=== PATIENT | female | born 1960 | race Native Hawaiian/Other Pacific Islander ===

== ENCOUNTER 2020-02-14 16:39 | Outpatient (CLI) | payer OTHER ==
[2020-02-14 17:08] LABS: PLATELET COUNT 350 K/uL (152-353)
[2020-02-14 17:23] LABS: POTASSIUM 4.1 mmol/L (3.6-5.2)
== END 2020-02-14 20:04 | disposition home or self-care (01) ==
LOC: LABW 16:39
PROVIDERS: ATTEND Internal Medicine Cardiovascular Disease
DX: Z01.812 Encounter for preprocedural laboratory examination (principal); Z11.59 Encounter for screening for other viral diseases; I10 Essential (primary) hypertension
CPT/HCPCS: 36415; 80053; 85027; 87635; U0003

== ENCOUNTER 2020-08-28 08:08 | Outpatient (CLI) | payer OTHER | END 2020-08-28 22:17 | disposition home or self-care (01) | LOC: US 08:08 | PROVIDERS: ATTEND Nurse Practitioner Family | DX: L04.0 Acute lymphadenitis of face, head and neck (principal) ==

== ENCOUNTER 2021-05-27 08:58 | Outpatient (CLI) | payer OTHER | END 2021-05-27 19:00 | disposition home or self-care (01) | LOC: RAD 08:58 | PROVIDERS: ATTEND Internal Medicine Rheumatology | DX: M06.09 Rheumatoid arthritis without rheumatoid factor, multiple sites (principal); Z79.899 Other long term (current) drug therapy ==

== ENCOUNTER 2022-03-26 11:10 | Outpatient (CLI) | payer OTHER | END 2022-03-26 19:00 | disposition home or self-care (01) | LOC: RAD 11:10 | PROVIDERS: ATTEND Nurse Practitioner Family | DX: M25.551 Pain in right hip (principal); M54.59 Other low back pain ==

== ENCOUNTER 2022-04-30 12:45 | Outpatient (CLI) | payer OTHER | END 2022-04-30 21:26 | disposition home or self-care (01) | LOC: RAD 12:45 | PROVIDERS: ATTEND Nurse Practitioner Family | DX: R06.02 Shortness of breath (principal); U07.1 COVID-19 ==

== ENCOUNTER 2022-06-04 14:05 | Outpatient (CLI) | payer OTHER | END 2022-06-04 20:59 | disposition home or self-care (01) | LOC: MRI 14:05 | PROVIDERS: ATTEND Nurse Practitioner Family | DX: M43.06 Spondylolysis, lumbar region (principal); M54.6 Pain in thoracic spine; M54.16 Radiculopathy, lumbar region; M47.817 Spondylosis without myelopathy or radiculopathy, lumbosacral region; M99.79 Connective tissue and disc stenosis of intervertebral foramina of abdomen and other regions ==

== ENCOUNTER 2022-09-12 17:10 | Emergency (ER) | payer OTHER ==
[~2022-09-12] VITALS: Ht 167.6 cm; Wt 59.0 kg
[2022-09-12 17:15] VITALS: BP 121/63; TEMP 98.1
[2022-09-12 17:42] LABS: PLATELET COUNT 402 K/uL (152-353)
[2022-09-12 17:49] LABS: POTASSIUM 4.2 mmol/L (3.6-5.2)
[2022-09-12 17:52] LABS: PARTIAL THROMBOPLASTIN TIME 24.7 SECONDS (23.9-36.7)
== END 2022-09-12 19:20 | disposition home or self-care (01) ==
LOC: ED 17:10
PROVIDERS: Family Medicine
DX: R07.89 Other chest pain (principal); F41.9 Anxiety disorder, unspecified
CPT/HCPCS: 80053; 82550; 84484; 85007; 85027; 85610; 85730; 93005; 99284

== ENCOUNTER 2022-09-22 09:00 | Outpatient (CLI) | payer OTHER | END 2022-09-22 19:19 | disposition home or self-care (01) | LOC: RAD 09:00 | PROVIDERS: ATTEND Nurse Practitioner Family | DX: D86.89 Sarcoidosis of other sites (principal); J44.9 Chronic obstructive pulmonary disease, unspecified; M06.09 Rheumatoid arthritis without rheumatoid factor, multiple sites; M10.09 Idiopathic gout, multiple sites; Z79.631 Long term (current) use of antimetabolite agent ==

== ENCOUNTER 2022-09-23 09:07 | Outpatient (CLI) | payer OTHER | END 2022-09-23 20:23 | disposition home or self-care (01) | LOC: RESP 09:07 | PROVIDERS: ATTEND Nurse Practitioner Family | DX: R01.1 Cardiac murmur, unspecified (principal) ==

== ENCOUNTER 2022-10-28 09:34 | Outpatient (CLI) | payer OTHER | END 2022-10-28 18:56 | disposition home or self-care (01) | LOC: MAMMO 09:34 | PROVIDERS: ATTEND Nurse Practitioner Family | DX: Z12.31 Encounter for screening mammogram for malignant neoplasm of breast (principal) ==

== ENCOUNTER 2022-12-18 09:58 | Outpatient (CLI) | payer OTHER ==
[2022-12-18 10:34] LABS: PLATELET COUNT 340 K/uL (152-353)
[2022-12-18 10:55] LABS: POTASSIUM 3.5 mmol/L (3.6-5.2)
== END 2022-12-18 18:59 | disposition home or self-care (01) ==
LOC: LABW 09:58
PROVIDERS: ATTEND Nurse Practitioner Family
DX: E11.9 Type 2 diabetes mellitus without complications (principal); I10 Essential (primary) hypertension; E03.8 Other specified hypothyroidism; E78.49 Other hyperlipidemia
CPT/HCPCS: 36415; 80053; 83036; 84443; 85027

== ENCOUNTER 2023-04-28 00:31 | Emergency (ER) | payer OTHER ==
[~2023-04-28] VITALS: Ht 167.6 cm; Wt 49.9 kg
[2023-04-28 01:00] VITALS: TEMP 97.6
[2023-04-28] MEDS ORDERED: HYDROXYZINE HCL 25 MG TAB ONE (03:13)
[2023-04-28] MEDS ORDERED: HYDROXYZINE HCL 25 MG TAB PO ONE (03:15)
[2023-04-28 03:50] VITALS: BP 138/72
== END 2023-04-28 03:50 | disposition home or self-care (01) ==
LOC: ED 00:31
DX: L29.9 Pruritus, unspecified (principal); B86 Scabies
CPT/HCPCS: 99282; 99283

== ENCOUNTER 2023-05-04 13:09 | Outpatient (CLI) | payer OTHER | END 2023-05-04 20:20 | disposition home or self-care (01) | LOC: RAD 13:09 | PROVIDERS: ATTEND Nurse Practitioner Family | DX: M25.519 Pain in unspecified shoulder (principal); M89.8X1 Other specified disorders of bone, shoulder; T14.8XXA Other injury of unspecified body region, initial encounter; Y92.89 Other specified places as the place of occurrence of the external cause ==